=== PATIENT | female | born 1940 | race Hispanic/Latino ===

== ENCOUNTER 2020-05-08 12:18 | Emergency (ER) | payer MEDICARE ==
[2020-05-08] MEDS ORDERED: amLODIPine 5 MG TAB PO ONE (12:53)
--- NOTE | 2020-05-08 13:14 | Emergency Department Report ---
HPI - General Chief Complaint: High BP Time Seen by Provider: 05/08/20 12:35 - HPI HPI: This is a 79-year-old female presents to the emergency department via EMS from home with a complaint of "I felt faint." Patient says that she lives in a camper in the front yard of her daughter's home. Patient says "I cannot explain it but I felt faint and nervous so I called (EMS)." At this time the patient denies any headache, vision change, slurred speech, numbness or paresthesias, chest pain, shortness of breath, fever. She has a past medical hi story of hypertension, asthma, mitral valve prolapse, osteoarthritis. She is not on any antihypertensive medication. She follows with Dr. Enriquez for cardiology regarding her MVP. No recent travel or sick contacts at home. She did not take anything, nor receive anything, for her symptoms prior to presentation today. ED Past Medical Hx - Past Medical History Previous Medical History?: Yes Hx Hypertension: Yes Hx Asthma: Yes Hx HIV: No Additional medical history: MVP, migraine - Surgical History Past Surgical History?: Yes Additional Surgical History: Right Breast, hysterectomy, B/L knee replacement - Social History Smoking Status: Never Smoker Substance Use Type: None - Medications Home Medications: Home Medications Medication Instructions Recorded Confirmed Last Taken Type Losartan [Cozaar] 100 mg PO QDAY #30 tablet 05/21/18 Unknown Rx ED Review of Systems ROS: Stated complaint: DIZZY Other details as noted in HPI Comment: All other systems reviewed and negative Constitutional: denies: chills, fever Eyes: denies: eye pain, vision change ENT: denies: ear pain, throat pain Respiratory: denies: cough, shortness of breath Cardiovascular: denies: chest pain, palpitations Gastrointestinal: denies: abdominal pain, vomiting Genitourinary: denies: dysuria, discharge Musculoskeletal: denies: back pain, arthralgia Skin: denies: rash, lesions Neurological: other (dizziness/lightheaded). denies: headache Physical Exam - Physical Exam Vital Signs: Vital Signs 05/08/20 12:20 Temperature 98.4 F Pulse Rate 71 Respiratory 22 Rate Blood Pressure 197/71 O2 Sat by Pulse 97 Oximetry Physical Exam: GENERAL: The patient is well-developed well-nourished. HENT: Normocephalic. Atraumatic. Patient has moist mucous membranes. EYES: Extraocular motions are intact. No nystagmus. NECK: Supple. Trachea is midline. CHEST/LUNGS: Clear to auscultation. There is no respiratory distress noted. HEART/CARDIOVASCULAR: Regular. There is no tachycardia. ABDOMEN: Abdomen is soft, nontender. Patient has normal bowel sounds. SKIN: Skin is warm and dry. NEURO: The patient is awake, alert, and oriented. The patient is cooperative. The patient has no focal neurologic deficits. Normal speech. Cranial nerves II through XII grossly intact. No facial asymmetry. No pronator drift or dysmetria. MUSCULOSKELETAL: There is no tenderness or deformity. There is no limitation range of motion. ED Course Vital Signs 05/08/20 12:20 Temperature 98.4 F Pulse Rate 71 Respiratory 22 Rate Blood Pressure 197/71 O2 Sat by Pulse 97 Oximetry ED Medical Decision Making - Lab Data Result diagrams: 05/08/20 12:52 05/08/20 12:52 - EKG Data -: EKG Interpreted by Co EKG shows normal: sinus rhythm, axis, intervals, QRS complexes (Q waves to the septal and inferior leads), ST-T waves Rate: normal - EKG Data When compared to previous EKG there are: no significant change Interpretation: unchanged when compared t (05/19/18) - Medical Decision Making This patient presents to the emergency department with the complaint of some nonspecific lightheadedness and/or dizziness that occurred just prior to presentation. On examination the patient does not have any focal, motor or sensory deficits and her cranial nerves are intact. EKG did not have any morphology consistent with ST elevation myocardial infarction or any significant dysrhythmia. Labs have been unremarkable including CBC, metabolic panel, TSH and a negative troponin. The patient was seen ambulatory throughout the emergency department and both appears and feels stable. She did present with some elevated blood pressure but it came down to a much more reasonable level with a dose of amlodipine. She has good outpatient follow-up with both primary care and cardiology. Patient appears safe for discharge home at this time. However, the patient has requested to see case management and she feels apprehensive about living by herself in the camper on her daughters front lawn. Critical Care Time: No Critical care attestation.: If time is entered above; I have spent that time in minutes in the direct care of this critically ill patient, excluding procedure time. ED Disposition Clinical Impression: Lightheaded, Dizziness, Hyperkalemia Hypertension Qualifiers: Hypertension type: essential hypertension Qualified Code(s): I10 - Essential (primary) hypertension Disposition: TO HOME OR SELFCARE Is pt being admited?: No Condition: Stable Instructions: Hyperkalemia (ED), Hypertension (ED), Lightheadedness (ED), Dizziness (ED) Additional Instructions: Try to stay away from foods that are high in salt and caffeinated products. Keep a blood pressure log. Return to the emergency department with any worsening of your symptoms, new or concerning symptoms not addressed during this current emergency department visit, or with any acute distress. Referrals: EDWAR ENRIQUEZ MD [Staff Physician] - 2-3 Days Time of Disposition: 15:24
[2020-05-08 13:49] LABS: Basophils # (Auto) 0.1 K/mm3 (0.0-0.1); Basophils % (Auto) 1.4 % (0.0-1.8); Eosinophils # (Auto) 0.2 K/mm3 (0.0-0.4); Eosinophils % (Auto) 4.4 % (0.0-4.3); Hematocrit 39.4 % (30.3-42.9); Hemoglobin 13.3 gm/dl (10.1-14.3); Lymphocytes # (Auto) 1.4 K/mm3 (1.2-5.4); Mean Corpuscular HGB Conc 34 % (30-34); Mean Corpuscular Volume 87 fl (79-97); Monocytes # (Auto) 0.5 K/mm3 (0.0-0.8); Monocytes % (Auto) 9.7 % (0.0-7.3); Platelet Count 158 K/mm3 (140-440); Red Blood Count 4.54 M/mm3 (3.65-5.03); Red Cell Distribution Width 14.2 % (13.2-15.2)
[2020-05-08 14:11] LABS: BUN/Creatinine Ratio 26; Blood Urea Nitrogen 21 mg/dL (7-17); Calcium 10.9 mg/dL (8.4-10.2); Hemolysis Index 8
[2020-05-08] MEDS ORDERED: SODIUM POLYSTYRENE 15 GM/60 ML ORAL LIQD PO ONE (14:23)
[2020-05-08 16:34] VITALS: BP 171/78
== END 2020-05-08 16:35 | disposition home or self-care (01) ==
LOC: ED 12:18
DX: R42 Dizziness and giddiness (principal); E87.5 Hyperkalemia; I10 Essential (primary) hypertension; J45.909 Unspecified asthma, uncomplicated; Z90.710 Acquired absence of both cervix and uterus; Z98.890 Other specified postprocedural states; Z79.899 Other long term (current) drug therapy; Z88.0 Allergy status to penicillin
CPT/HCPCS: 36415; 80048; 84443; 84484; 85025; 93005